=== PATIENT | male | born 1955 | race Caucasian/White ===

== ENCOUNTER → 2021-03-12 | Outpatient (CLI) | payer MEDICARE, OTHER ==
[2015-03-26 12:32] VITALS: BP 123/76
[~2021-03-12] MED LIST: ACET500T33 PO; ASPI325T11 PO; GLIM2TAB7 PO; INDA1.25 PO; LIRA0.6P2 SQ; LOSA-73 PO; LOVA40TA2 PO; METF10007 PO; MULT-208 PO; OXYC1TAB19 PO
--- NOTE | 2021-03-12 14:04 | KCIC ---
EXAMINATION: MRI RIGHT LOWER EXTREMITY JOINT WITHOUT INDICATIONS: Right knee pain, medial knee pain for almost one year. TECHNIQUE: Multiplanar multisequence MRI of the right knee was obtained without contrast. COMPARISON: None. FINDINGS: MENISCI: There is a small complex tear of the medial meniscus in the body with a small radial compon ent and an oblique linear component surfacing inferiorly. The lateral meniscus is intact. LIGAMENTS: The anterior and posterior cruciate ligaments are intact. Medial collateral ligament and lateral collateral ligament complex are intact. EXTENSOR MECHANISM: There is thickening and increased signal in the distal patellar tendon consisten t with tendinopathy. There is some irregularity of the tibial tuberosity that may be sequela of [place]-Schlatter's disease. Quadriceps tendon is intact. Fat pads are normal. Retinacula are intact. BONES AND CARTILAGE: There is superficial partial-thickness cartilage loss in the medial compartment . Deep cartilage fissuring at the median ridge of the patella and mild cartilage irregularity along t he medial and lateral patellar facets. No acute fracture. Marrow signal is normal. OTHER: Small joint effusion. Trace Goncalves cyst. Muscles and remaining tendons are intact. There is mi ld prepatellar edema. IMPRESSION: 1. Small complex tear of the body medial meniscus. 2. Distal patellar tendinopathy and probable sequela of [place]over[place]-Schlatter's disease. 3. Mild medial and patellofemoral cartilage loss. Electronically signed by: Marilyn Razo MD (03/12/2021 2:02 PM) [id number]
== END ==
LOC: KCIC MRI 12:21
PROVIDERS: ATTEND Orthopaedic Surgery
DX: S83.241A Other tear of medial meniscus, current injury, right knee, initial encounter (principal); M25.461 Effusion, right knee; X58.XXXA Exposure to other specified factors, initial encounter; Y93.89 Activity, other specified; Y92.89 Other specified places as the place of occurrence of the external cause; Y99.8 Other external cause status
CPT/HCPCS: 73721

== ENCOUNTER 2021-03-22 06:52 | Day surgery (SDC) | payer MEDICARE, OTHER ==
[~2021-03-22] VITALS: Ht 170.2 cm; Wt 112.0 kg
[~2021-03-22 06:52] MED LIST changes: +AMLO-186 PO; +ASPI81TA59 PO; +HYDROmorphone 2 MG/ML VIAL IVP PRN; +IBUP-1027 PO; +INSU100I32 SQ; +IV RINGERS,LACTATED 1000ML 1,000 ML IV SCH; +MORPHINE SULFATE 2 MG/ML VIAL. IVP PRN; +MULT-445 PO; +PROCHLORPERAZINE 10 MG/2 ML VIAL. IVP PRN; +fentaNYL PF VIAL 100 MCG/2 ML VIAL IVP PRN
[2021-03-22] MEDS ORDERED: BUPIVACAINE-EPI 0.5% 30 ML VIAL KIT. ONE (06:59)
[2021-03-22] MEDS ORDERED: DULA0.75 SQ (07:33)
[2021-03-22] MEDS ORDERED: INDA1.25 PO (07:34)
[2021-03-22] MEDS ORDERED: fentaNYL PF VIAL 100 MCG/2 ML VIAL ONE ×2 (07:45→09:41)
[2021-03-22] MEDS ORDERED: LIDOCAINE 2% PF 5 ML VIAL. ONE (07:45)
[2021-03-22] MEDS ORDERED: PROPOFOL 10 MG/ML (20ML) VIAL. IV ONE ×2 (07:45→08:33)
[2021-03-22] MEDS: INSULIN LISPRO 100 UNIT/ML 3ML VIAL for OP,RR ONLY. SQ PRN ×2 (07:48→09:32)
[2021-03-22] MEDS ORDERED: SCOPOLAMINE 1.5MG PATCH. TD ONE (08:15)
[2021-03-22] MEDS ORDERED: EPINEPHrine VIAL 30 MG/30 ML VIAL ONE (08:16)
[2021-03-22] MEDS ORDERED: DEXAMETHASONE SOD PHOS 4 MG/ML VIAL ONE (08:33)
[2021-03-22] MEDS ORDERED: ONDANSETRON PF 4 MG/2 ML VIAL. ONE (08:33)
[2021-03-22] MEDS ORDERED: KETOROLAC 30 MG/ML VIAL. ONE (09:01)
[2021-03-22] MEDS ORDERED: SEVOFLURANE 61 TO 120 MINUTES. IH ONE (09:01)
--- NOTE | 2021-03-22 09:34 | PDOC4 ---
Operative Note Operative Note Date of Procedure: March 22, 2021 Preoperative Diagnosis: right knee medial meniscus tear Postoperative Diagnosis: complex tear medial meniscus, current injury, right knee, initial encounter, S83.231A Procedures Performed: right knee arthroscopy, surgical, with meniscectomy, MEDIAL, including meniscal shaving, including debridement/shaving of articular cartilage (chondroplasty) CPT 29228 Surgeon: Paul Campo MD [employer] Associate: AUSTIN Rivers Anesthesia: General Estimated Blood Loss: 5 mL Specimens: none Drains: none Complications: none Tourniquet time: 27 minutes at 300 mm Hg Indications for Procedure: The patient is a 65-year-old with right knee pain, unrelieved with nonoperative treatment. Exam and MRI are consistent with a meniscus tear. We talked about the risks and benefits of proceeding with an arthroscopic procedure. We talked about potential risks of ongoing pain, progressive arthritis, bleeding, infection, blood clots, or other potential surgical or anesthetic complications. All of the patient's questions about surgery were answered and they desired to proceed. Written consent was obtained. Description of Operation: The patient was identified in the preoperative holding area. The correct right knee was marked by me. The patient was taken to the operating room, where a general anesthetic was used. Preoperative antibiotics were given intravenously. A time-out procedure was performed. A tourniquet was placed on the upper thigh. Local anesthetic 20 mL of 0.25% bupivacaine was injected using sterile technique into the knee joint. The limb was prepared circumferentially with ChloraPrep solution and sterile waterproof arthroscopy drapes were applied. The limb was exsanguinated with an Esmarch bandage and the tourniquet was inflated. Lateral and medial arthroscopy portals were established. The medial meniscus showed a complex unrepairable tear with unstable flaps. 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 The lateral tibiofemoral joint showed a normal lateral meniscus, so no lateral meniscectomy was required.The lateral articular surfaces showed chondromalacia [place] grade I, so no chondroplasty was required. The patellofemoral joint showed chondromalacia [place] grade I, so no chondroplasty was required. The suprapatellar pouch, medial and lateral gutters were free of loose bodies. Copious irrigation was used to drain all meniscal and chondral fragments, and the knee was drained of fluid. The portals were closed with #3-0 Prolene interrupted sutures. Additional local anesthetic, 30 mL of 0.25% bupivacaine with epinephrine was injected. A bulky sterile dressing was applied and the tourniquet was released. Needle and sponge counts were correct and there were no apparent complications. PAUL CAMPO MD Mar 22, 2021 09:34
[2021-03-22] MEDS ORDERED: INSULIN LISPRO 100 UNIT/ML 3ML VIAL for OP,RR ONLY. SQ ONE ×2 (09:40)
[2021-03-22] MEDS ORDERED: IBUP-1027 PO (09:57)
[2021-03-22] MEDS ORDERED: ONDA-84 PO (09:57)
[2021-03-22] MEDS ORDERED: PROM25TA10 PO (09:58)
[2021-03-22] MEDS ORDERED: HYDR-2765 PO (09:59)
[2021-03-22] MEDS ORDERED: HYDROcodone/APAP 7.5/325MG 1 TAB TABLET PO ONE (10:00)
[2021-03-22 10:20] VITALS: BP 125/67
== END 2021-03-22 11:00 | disposition home or self-care (01) ==
LOC: SURG 06:52
PROVIDERS: ATTEND Orthopaedic Surgery
DX: S83.231A Complex tear of medial meniscus, current injury, right knee, initial encounter (principal); I10 Essential (primary) hypertension; E78.00 Pure hypercholesterolemia, unspecified; E11.9 Type 2 diabetes mellitus without complications; E66.9 Obesity, unspecified; M19.90 Unspecified osteoarthritis, unspecified site; Z79.82 Long term (current) use of aspirin; Z79.84 Long term (current) use of oral hypoglycemic drugs; Z79.899 Other long term (current) drug therapy; Z98.890 Other specified postprocedural states; Z88.5 Allergy status to narcotic agent; Z88.8 Allergy status to other drugs, medicaments and biological substances; X58.XXXA Exposure to other specified factors, initial encounter; Y93.89 Activity, other specified; Y92.89 Other specified places as the place of occurrence of the external cause; Y99.8 Other external cause status
CPT/HCPCS: 29881; 82962; 97116; 97161; A4930; J0171; J0690; J1100; J1815; J1885; J2405; J2704; J3010